=== PATIENT | female | born 1990 | race American Indian/Alaskan Native ===

== ENCOUNTER 2019-07-12 23:12 | Emergency (ER) | payer OTHER ==
[2019-07-12 23:36] VITALS: BP 106/53
[2019-07-13] MEDS ORDERED: LIDOCAINE-MPF (1%) 10 MG/1 ML VIAL 5 ML INFILTRATI ONE (00:34)
[2019-07-13] MEDS: SILVER NITRATE APPLICATOR 1 EA TP ONE ×2 (00:48→01:46)
[2019-07-13] MEDS ORDERED: TETANUS,DIPH,PERTUSS(ACELL) VACCINE 0.5 ML SYRINGE IM ONE (01:17)
--- NOTE | 2019-07-13 01:21 | Emergency Department Report ---
- General Chief Complaint: Wound/Laceration Stated Complaint: LT HAND 5TH FINGER LAC Time Seen by Provider: 07/13/19 00:26 Source: patient Mode of arrival: Ambulatory Limitations: No Limitations - History of Present Illness Initial Comments: Patient is a 29-year-old female presents emergency room with complaints of a laceration to the left pinky finger that occurred around 6:30 PM. Patient states that she cut herself on a metal can. She is unsure of her last tetanus immunization. She is fully able to move the digit. She denies any numbness or weakness. She denies any past medical history or allergies medications. - Related Data Allergies Allergy/AdvReac Type Severity Reaction Status Date / Time No Known Allergies Allergy Unverified 07/12/19 23:35 ED Review of Systems ROS: Stated complaint: LT HAND 5TH FINGER LAC Other details as noted in HPI Comment: All other systems reviewed and negative ED Past Medical Hx - Past Medical History Previous Medical History?: Yes - Surgical History Past Surgical History?: No ED Physical Exam - General Limitations: No Limitations General appearance: alert, in no apparent distress - Head Head exam: Present: atraumatic, normocephalic - Eye Eye exam: Present: normal appearance - ENT ENT exam: Present: mucous membranes moist - Neurological Exam Neurological exam: Present: alert, oriented X3 - Psychiatric Psychiatric exam: Present: normal affect, normal mood - Skin Skin exam: Present: warm, dry, other (one centimeter laceration to the left pinky finger on the palmar surface, laceration is superficial,clean, no foreign body identified, no muscle or tendon involevment, pt has full ROM of the left pinky without difficulty, neurovascularly intact, very small area of slight bleeding present) ED Course Vital Signs 07/12/19 23:17 Temperature 98.5 F Pulse Rate 77 Respiratory 18 Rate Blood Pressure 106/53 O2 Sat by Pulse 100 Oximetry - Laceration /Wound Repair Left Palm Finger Wound Location: upper extremity (palmar surface of the left pinky finger) Wound Length (cm): 1 Wound's Depth, Shape: superficial Irrigated w/ Saline (ccs): 50 Betadine Prep?: Yes Anesthesia: 1% Lidocaine Volume Anesthetic (ccs): 5 Wound Debrided: minimal Wound Repaired With: sutures Suture Size/Type: 4:0, proline Number of Sutures: 1 Layer Closure?: No Sterile Dressing Applied?: Yes Progress: Wound irrigated with saline and scrubbed with Betadine, the very small area that was previously bleeding has completely self resolved, no foreign body identified, no muscle or tendon involvement, 5 mL of 1% lidocaine without epinephrine used for digital block, Betadine prep, sterile gloves worn, sterile drapes applied, 4-0 Prolene used for skin closure, 1 suture placed, patient tolerated well, no bleeding, no complications, sterile dressing applied ED Medical Decision Making - Medical Decision Making Patient is a 29-year-old female presents emergency room with complaints of a laceration to the left pinky finger that occurred around 6:30 PM. Patient states that she cut herself on a metal can. She is unsure of her last tetanus immunization. She is fully able to move the digit. She denies any numbness or weakness. She denies any past medical history or allergies medications. VSS. on exam: one centimeter laceration to the left pinky finger on the palmar surface, laceration is superficial,clean, no foreign body identified, no muscle or tendon involevment, pt has full ROM of the left pinky without difficulty, neurovascularly intact, very small area of slight bleeding present. Small area of bleeding self resolved and did not have to use silver nitrate. Wound irrigated with saline and cleaned with Betadine. Laceration repaired per procedure note. Patient given tetanus immunization. advised pt suture will need to be removed in 7 days. Please keep area clean, dry, covered. May wash with soap and water and immediately dry. No hot tub, pool, soaking in water. Follow up with a primary care doctor in the next 3-5 days.. Return to the emergency room for any new or worsening symptoms Critical care attestation.: If time is entered above; I have spent that time in minutes in the direct care of this critically ill patient, excluding procedure time. ED Disposition Clinical Impression: Laceration of finger Qualifiers: Encounter type: initial encounter Finger: little finger Damage to nail status: without damage Foreign body presence: without foreign body Laterality: left Qualified Code(s): S61.217A - Laceration without foreign body of left little finger without damage to nail, initial encounter Disposition: TO HOME OR SELFCARE Is pt being admited?: No Does the pt Need Aspirin: No Condition: Stable Instructions: Suture Care (ED), Laceration (ED) Additional Instructions: Sutures will need to be removed in 7 days. Please keep area clean, dry, covered. May wash with soap and water and immediately dry. No hot tub, pool, soaking in water. Follow up with a primary care doctor in the next 3-5 days.. Return to the emergency room for any new or worsening symptoms Referrals: PRIMARY CARE, [Primary Care Provider] - 3-5 Days Time of Disposition: 01:22 Print Language: WOLOF
== END 2019-07-13 01:39 | disposition home or self-care (01) ==
LOC: ED 23:12
DX: S61.217A Laceration without foreign body of left little finger without damage to nail, initial encounter (principal); W26.8XXA Contact with other sharp object(s), not elsewhere classified, initial encounter; Y93.89 Activity, other specified; Y92.89 Other specified places as the place of occurrence of the external cause; Y99.8 Other external cause status
CPT/HCPCS: 90471; 90715